=== PATIENT | female | born 1985 | race Caucasian/White ===

== ENCOUNTER 2020-05-25 11:19 | Emergency (ER) | payer MEDICAID ==
[~2020-05-25] VITALS: Ht 154.9 cm; Wt 81.2 kg
[2020-05-25 11:25] VITALS: Ht 154.9 cm; Wt 81.2 kg
[2020-05-25 13:46] VITALS: BP 126/62
== END 2020-05-25 13:46 | disposition home or self-care (01) ==
LOC: ED 11:19
DX: M25.461 Effusion, right knee (principal); M23.8X1 Other internal derangements of right knee; S80.211A Abrasion, right knee, initial encounter; W22.8XXA Striking against or struck by other objects, initial encounter; Y93.89 Activity, other specified; Y92.89 Other specified places as the place of occurrence of the external cause; Y99.8 Other external cause status
CPT/HCPCS: Q0092